=== PATIENT | male | born 1965 | race Caucasian/White ===

== ENCOUNTER 2017-09-22 19:39 | Emergency (ER) | payer BC, OTHER ==
--- NOTE | 2017-09-22 19:42 | UC ---
Back Pain HPI - HPI Summary HPI Summary: Pt presents with left middle back pain for 1 week. He tells me that one week ago he was lifting weights and felt a pull in the left side of his mid back. He tried to rest and heat the area, but it keeps "spasm-ing" and feels tight. He has not taken anything for pain as he "does not like pills". 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 Onset/Duration: Gradual Onset Severity Initially: Moderate Severity Currently: Moderate Character: Spasmodic, Stiffness Aggravating Factor(s): Movement, Lifting Alleviating Factor(s): Rest, Position - Allergies/Home Medications Allergies/Adverse Reactions: Allergies Allergy/AdvReac Type Severity Reaction Status Date / Time Penicillins Allergy Unknown Verified 09/22/17 19:49 Reaction Details Home Medications: Home Medications Ibuprofen TAB* [Motrin TAB* 600 MG] 600 mg PO Q6H PRN 09/22/17 [History Confirmed 09/22/17] PMH/Surg Hx/FS Hx/Imm Hx Previously Healthy: Yes - Social History Occupation: Employed Full-time Lives: With Family Alcohol Use: Occasionally Substance Use Type: None Smoking Status (MU): Never Smoked Tobacco Review of Systems Constitutional: Negative Skin: Negative Respiratory: Negative Cardiovascular: Negative Gastrointestinal: Negative Musculoskeletal: Decreased ROM - SPine, Other: - LBP Neurological: Negative All Other Systems Reviewed And Are Negative: Yes Physical Exam Triage Information Reviewed: Yes Appearance: Well-Appearing, Well-Nourished Vital Signs Reviewed: Yes Neck: Positive: Supple, No Lymphadenopathy, Other: - FROM. NTTP. Respiratory: Positive: Chest non-tender, Lungs clear, Normal breath sounds, No respiratory distress, No accessory muscle use Cardiovascular: Positive: RRR, No Murmur, Pulses Normal Musculoskeletal: Positive: Strength Intact - B/L UEs and LEs, ROM Intact - B/L UEs and LEs, No Edema, ROM Limited @ - Spine - pain with flexion and extension. , Other: - TTP over left mid back paraspinal muscles. No obvious deformities or rash. Negative SLR and STUART. Neurological: Positive: Alert, Other: - Sensations L3-S1 intact biliaterally Psychological: Positive: Age Appropriate Behavior Skin: Negative: rashes Back Pain Course/Dx - Course Course Of Treatment: Toradol IM in clinic today. Rx for flexeril at bedtime. Advised to stretch and try ibuprofen during the day as needed q6hrs. - Differential Dx/Diagnosis Differential Diagnosis/HQI/PQRI: Strain, Sprain Provider Diagnoses: Mid back spasm Discharge - Discharge Plan Condition: Stable Disposition: HOME Prescriptions: Cyclobenzaprine TAB* [Flexeril 10 MG TAB*] 10 mg PO BEDTIME PRN #[id number] tab PRN Reason: Pain Patient Education Materials: Muscle Spasm (ED), Lower Back Exercises (ED) Referrals: Danis Rojo MD [Primary Care Provider] - Additional Instructions: If you develop a fever, SOB, chest pain, numbness, tingling, loss of bowel/ bladder function, new or worsening symptoms - please call your PCP or go to the ED. Your blood pressure was high at todays visit. Please see your primary provider within 4 weeks for recheck and re-evaluation. 1) May take ibuprofen 600-800mg every 6-8 hours as needed for pain 2) Activities as tolerated and try back stretches.
[2017-09-22 19:49] VITALS: BP 165/88
[2017-09-22] MEDS ORDERED: Ketorolac INJ* 30 MG/ML 1 ML VIAL IM ONE (19:51)
== END 2017-09-22 20:18 | disposition home or self-care (01) ==
LOC: UCCORT 19:39
DX: M62.830 Muscle spasm of back (principal); Z88.0 Allergy status to penicillin
CPT/HCPCS: 96372; 99201; G0463; J1885